=== PATIENT | male | born 1960 | race Caucasian/White ===

== ENCOUNTER → 2016-07-31 | Outpatient (CLI) | payer OTHER ==
[~2016-07-31] MED LIST: NITR.4 SL; SPIR50TA21 PO
--- NOTE | 2016-08-06 10:29 | RADRPT ---
EXAM DATE/TIME: 07/31/2016 00:00 [facility] COMPARISON: No previous studies available for comparison. OUTSIDE STUDY REVIEWED: Neck CT with IV contrast performed on 03/16/2016 at [facility]. INDICATIONS : CT Guided biopsy of left submandibular mass. FINDINGS: Request was made for a left neck mass biopsy. Clinically the patient has a lump. However, review of the prior CT from 03/16/2016 documents no definite suspicious mass for biopsy. There appears to b e asymmetric size of the left submandibular gland which is slightly larger than the right but no defi nite mass is identified. Prior to scheduling biopsy would be ideal to repeat a neck CT with IV contra st to determine if there is a mass present for biopsying and whether or not it should be scheduled as a CT or ultrasound guided procedure. CONCLUSION: Recommend neck CT with IV contrast to evaluate the reported left neck mass. The prior CT from February 2016 did not clearly demonstrate a left neck mass. The left submandibular gland appears larger than the right but a obvious mass is not seen. The CT would help evaluate the location of the mass to dete rmine if it is better to biopsy under CT or ultrasound guidance. Manish Ling MD on August 06, 2016 at 10:23 Board Certified Radiologist. This report was verified electronically.
== END ==
LOC: HRAD 15:06
PROVIDERS: ATTEND Internal Medicine Hematology & Oncology
DX: C01 Malignant neoplasm of base of tongue (principal)
CPT/HCPCS: 76140

== ENCOUNTER 2016-08-24 13:02 | Day surgery (SDC) | payer OTHER ==
[2016-08-24] MEDS ORDERED: SODIUM BICARBONATE 8.4% INJ 50 ML ONE (14:24)
[2016-08-24] MEDS ORDERED: LIDOCAINE HCL 1% PF 30 ML VIAL ONE (14:24)
[2016-08-24 14:27] VITALS: BP 123/77; PULSE 88; RESP 17; O2SAT 98
[2016-08-24 14:42] VITALS: BP 130/76; PULSE 64; RESP 17; O2SAT 98
--- NOTE | 2016-08-24 15:56 | RADRPT ---
EXAM DATE/TIME: 08/24/2016 13:31 [facility] COMPARISON: No previous studies available for comparison. EXTERNAL COMPARISON: [facility], CT SOFT TISSUE NECK,W/ CONTRAST, Aug 12 2016, March 16, 2016, September 16, 2015,C T SOFT TISSUE NECK, W & W/O CONTRAST, March 06, 2015, [facility], CT SOFT TISSUE NECK W/O CONTRAST, July 11, 2014. INDICATIONS : Left submandibular palpable lump. MEDICAL HISTORY : Hepatitis C. Cirrhosis. Gastroesophageal reflux disease. Throat cancer. Hypertension. Colitis. Ulcers . Hital hernia. SURGICAL HISTORY : Paracentesis. Heart cath. Jaw surgery. ENCOUNTER: Initial ACUITY: 1 yr PAIN SCORE: 5/10 LOCATION: Left neck ORGAN: Left soft tissue submandibular neck SPECIMENS: One core specimen(s) submitted for pathologic evaluation. DEVICE: 18 gauge Bio Pince needle Post procedure scanning reveals no hematoma or other complication. The possibility does exist that the tissue obtained will be non-diagnostic. If the sample is non-hero gnostic a repeat biopsy or surgical biopsy may need to be performed. TECHNIQUE: 1. Ultrasound guidance for needle biopsy. 2. Needle biopsy. The risks, benefits, and alternatives to ultrasound guided needle biopsy were explained to the patien t in detail including the risk of bleeding and infection. Written and verbal informed consent was ob tained. With the patient on the ultrasound table, images were obtained. Overlying skin was prepped and drape d in the usual sterile fashion and Lidocaine was utilized as a local anesthetic. Under direct ultrasound guidance 18 gauge core was obtained. The patient tolerated the procedure well and left the ultrasound suite in stable condition. CONCLUSION: Uncomplicated ultrasound guided needle biopsy of the left submental node. Ramesh Kim MD FACR on August 24, 2016 at 15:52 Board Certified Radiologist. This report was verified electronically.
== END 2016-08-24 14:54 | disposition home or self-care (01) ==
LOC: HRAD 13:02 → HRIP 13:06 → HRAD 14:54
PROVIDERS: ATTEND Internal Medicine Hematology & Oncology
DX: R22.0 Localized swelling, mass and lump, head (principal); K11.20 Sialoadenitis, unspecified; I10 Essential (primary) hypertension; K21.9 Gastro-esophageal reflux disease without esophagitis; B19.20 Unspecified viral hepatitis C without hepatic coma; Z85.819 Personal history of malignant neoplasm of unspecified site of lip, oral cavity, and pharynx
CPT/HCPCS: 20206; 76942; 88305; 88333